=== PATIENT | female | born 1960 | race Caucasian/White ===

== ENCOUNTER 2018-07-14 00:43 | Observation (INO) | payer OTHER ==
[~2018-07-14] VITALS: Ht 157.5 cm; Wt 64.5 kg
[2018-07-14] VITALS (9 sets, daily range): BP systolic 131–189; BP diastolic 57–80; PULSE 53–68; RESP 18–20; Ht 157.5 cm; Wt 64.5 kg
[~2018-07-14 00:43] MED LIST: ARIP5TAB14 PO; ATOR10TA23 PO; BUPR100T6 PO; CALC-375 PO; CENTRUM SILVER; DULO60CA6 PO; LORA-401 PO; METO-103 PO; PREM3 PO; TRAM50TA2 PO
[2018-07-14] MEDS ORDERED: clonAZEPAM 0.5 MG TAB PO PRN (05:00)
[2018-07-14] MEDS ORDERED: VITAMIN E 400 UNITS CAP PO SCH (05:00)
[2018-07-14] MEDS ORDERED: DULO60CA59 PO (05:07)
[2018-07-14] MEDS ORDERED: PRED1TAB2 PO (05:22)
[2018-07-14] MEDS ORDERED: TRAZ300T15 PO (05:22)
[2018-07-14] MEDS ORDERED: VITA200C45 PO (05:22)
[2018-07-14] MEDS ORDERED: FER325 PO (05:22)
[2018-07-14] MEDS ORDERED: SULI150T PO (05:22)
[2018-07-14] MEDS ORDERED: MISO100T PO (05:22)
[2018-07-14] MEDS ORDERED: LOSA100T15 PO (05:22)
[2018-07-14] MEDS ORDERED: ASPI-817 PO (05:22)
[2018-07-14] MEDS ORDERED: ATOR40TA68 PO (05:22)
[2018-07-14] MEDS ORDERED: CLON1TAB13 PO (05:22)
[2018-07-14] MEDS ORDERED: PANT40TA4 PO (05:22)
[2018-07-14] MEDS ORDERED: LURA120T PO (05:22)
[2018-07-14] MEDS ORDERED: GABA-526 PO (05:22)
[2018-07-14] MEDS ORDERED: FOLI-49 PO (05:22)
[2018-07-14] MEDS ORDERED: METO-429 PO (05:22)
[2018-07-14] MEDS ORDERED: HYDR200T39 PO (05:22)
[2018-07-14] MEDS ORDERED: SUCR1TAB56 PO (05:22)
[2018-07-14] MEDS ORDERED: SULFA PO (05:22)
[2018-07-14] MEDS ORDERED: NITROGLYCERIN (SL) 0.4 MG TAB SL PRN (06:00)
[2018-07-14] MEDS ORDERED: ALBUTEROL/IPRATROPIUM (NEB) 3 ML AMP HHN PRN (06:00)
[2018-07-14] MEDS ORDERED: NACL 0.9% 3 ML SYG IV SCH (06:00)
[2018-07-14] MEDS ORDERED: PANTOPRAZOLE (EC) 40 MG TAB PO SCH (06:00)
[2018-07-14] MEDS ORDERED: ACETAMINOPHEN 325 MG TAB PO PRN (06:00)
[2018-07-14] MEDS ORDERED: ONDANSETRON 4 MG INJ IV PRN (06:00)
[2018-07-14] MEDS ORDERED: [UNRECOGNIZED DRUG - REMARK] XX SCH (07:30)
[2018-07-14] MEDS ORDERED: [UNRECOGNIZED DRUG - OTHER] XX SCH (07:30)
--- NOTE | 2018-07-14 08:45 | HP ---
Date/Time of Note Date/Time of Note DATE: 07/14/18 TIME: 08:40 Assessment/Plan VTE Prophylaxis Pharmacological prophylaxis: heparin Lines/Catheters IV Catheter Type (from Nrsg): Peripheral IV Assessment/Plan Assessment/Plan 57-year-old female with a history of rheumatoid arthritis, fibromyalgia, hypertension, dyslipidemia, bipolar/depression and recently diagnosed mitral regurgitation secondary to rheumatic heart disease transferred to [facility] for chest pain workup. Troponin x2 and EKG negative at the outside facility. Will rule out ACS PLAN Telemetry monitoring Supplemental oxygen, aspirin, nitro. Beta-savannah if heart rate and blood pressure allows Trend troponin 2D echo and cardiology consult Continue home meds with adjustment as needed Result Diagram: 07/14/18 0735 07/14/18 0735 Results 24hrs Laboratory Tests Test 07/14/18 07:35 White Blood Count 4.1 L Red Blood Count 3.73 L Hemoglobin 12.1 Hematocrit 36.7 L Mean Corpuscular Volume 98.4 Mean Corpuscular Hemoglobin 32.4 Mean Corpuscular Hemoglobin Concent 33.0 Red Cell Distribution Width 11.9 Platelet Count 129 L Mean Platelet Volume 11.5 H Immature Granulocytes % 0.000 L Neutrophils % Lymphocytes % Monocytes % Eosinophils % Basophils % Nucleated Red Blood Cells % 0.0 Immature Granulocytes # 0.000 Neutrophils # Lymphocytes # Monocytes # Eosinophils # Basophils # Nucleated Red Blood Cells # Sodium Level 143 Potassium Level 3.9 Chloride Level 107 Carbon Dioxide Level 31 Anion Gap 5 Blood Urea Nitrogen 11 Creatinine 0.67 Est Glomerular Filtrat Rate mL/min > 60 Glucose Level 91 Calcium Level 9.0 Total Bilirubin 0.1 L Direct Bilirubin 0.00 Indirect Bilirubin 0.1 Aspartate Amino Transf (AST/SGOT) 14 L Alanine Aminotransferase (ALT/SGPT) 18 Alkaline Phosphatase 33 L Creatine Kinase 30 Creatine Kinase Index Pending Creatinine Kinase MB (Mass) Pending Troponin I Pending Total Protein 5.6 L Albumin 3.7 Globulin 1.90 Albumin/Globulin Ratio 1.94 Triglycerides Level 69 Cholesterol Level 119 LDL Cholesterol, Calculated 47 HDL Cholesterol 58 Cholesterol/HDL Ratio 2.0 Thyroid Stimulating Hormone (TSH) Pending HPI/ROS Admit Date/Time Admit Date/Time Jul 14, 2018 at 03:41 Hx of Present Illness This is a 57-year-old female with a history of rheumatoid arthritis, fibromyalgia, hypertension, dyslipidemia, bipolar/depression and recently diagnosed mitral regurgitation secondary to rheumatic. Patient initially presented on outside hospital complaining of chest pain x 1 day. It is left-sided, nonradiating. She reported some association with shortness of breath. Denied nausea/vomiting or diaphoresis. Denied similar chest pain in the past. She is accompanied by her daughter who also provided history. At the outside facility, troponin was negative x2 and EKG without ST-T wave abnormal ities. She said the nitroglycerin that she was given at outside facility helped her pain. And when she was given morphine the pain completely resolved. She was transferred to [facility] for insurance reasons. PMH/Family/Social Past Medical History Medical History: other (See HPI) Medications Current Medications IV Flush (NS 3 ml) 3 ml PER PROTOCOL IV ; Start 07/14/18 at 06:00 Ondansetron HCl (Zofran Inj) 4 mg Q6H PRN IV NAUSEA/VOMITING; Start 07/14/18 at 06:00 Nitroglycerin (Nitroglycerin (Sl Tab) 0.4 Mg) 1 tab Q5M PRN SL .CHEST PAIN; Start 07/14/18 at 06:00 Acetaminophen (Tylenol Tab) 650 mg Q6H PRN PO .PAIN 1-3 OR TEMP; Start 07/14/18 at 06:00 Albuterol/ Ipratropium (Duoneb) 3 ml Q2H RESP THERAPY PRN HHN SHORTNESS OF BREATH; Start 07/14/18 at 06:00 Aspirin (Halfprin) 81 mg DAILY PO ; Start 07/14/18 at 09:00 Atorvastatin Calcium (Lipitor) 20 mg QHS PO ; Start 07/14/18 at 21:00 Clonazepam (Klonopin) 1 mg QPM PO ; Start 07/14/18 at 21:00 Duloxetine HCl (Cymbalta) 120 mg DAILY PO ; Start 07/14/18 at 09:00 Ferrous Sulfate (Ferrous Sulfate (Ec)) 325 mg DAILY PO ; Start 07/14/18 at 09:00 Folic Acid (Folic Acid) 1 mg DAILY PO ; Start 07/14/18 at 09:00 Gabapentin (Neurontin) 600 mg BID PO ; Start 07/14/18 at 09:00 Hydroxychloroquine Sulfate (Plaquenil) 200 mg BID PO ; Start 07/14/18 at 09:00 Losartan Potassium (Cozaar) 100 mg DAILY PO ; Start 07/14/18 at 09:00 Metoprolol Tartrate (Lopressor) 50 mg QAM PO ; Start 07/14/18 at 09:00 Misoprostol (Cytotec) 100 mcg QHS PO ; Start 07/14/18 at 21:00 Pantoprazole (Protonix Tab) 40 mg DAILY PO ; Start 07/14/18 at 09:00 Prednisone (Prednisone) 1 mg QAM PO ; Start 07/14/18 at 09:00 Sucralfate (Carafate) 1 gm HS PO ; Start 07/14/18 at 21:00 Sulfadiazine (Sulfadiazine) 1,000 mg DAILY PO ; Start 07/14/18 at 09:00 Sulindac (Clinoril) 200 mg QHS PO ; Start 07/14/18 at 21:00 Trazodone HCl (Desyrel) 300 mg QHS PO ; Start 07/14/18 at 21:00 Vitamin E (Vitamin E) 400 units DAILY PO ; Start 07/14/18 at 09:00 Miscellaneous Information 120 mg DAILY PO ; Start 07/14/18 at 09:00; Status UNV Miscellaneous Information (*Order Clarification Bulletin) LATUDA IS NON FORMULARY ITEM...PLE... Q8H XX ; Start 07/14/18 at 07:30 Miscellaneous Information (*Order Clarification Bulletin) SULINDAC IS NOT AVAILABLE AT THE [facility] [place] Q8H XX ; Start 07/14/18 at 07:30 Coded Allergies: No Known Drug Allergies (Verified Allergy, Unknown, 10/15/11) Past Surgical History Past Surgical Hx: other (See HPI) Family History Significant Family History: no pertinent family hx Social History Alcohol Use: none Smoking Status: Current every day smoker Drug Use: none Exam/Review of Systems Vital Signs Vitals Vital Signs Date Temp Pulse Resp B/P (MAP) Pulse Ox O2 O2 Flow FiO2 Time Delivery Rate 07/14/18 68 08:27 07/14/18 98.2 18 137/63 94 Room Air 07:29 (87) Intake and Output 07/13/18 07/13/18 07/14/18 1515:00 23:00 07:00 IntakeIntake Total 0 ml BalanceBalance 0 ml Exam Constitutional: alert, oriented Head: normocephalic, atraumatic Eyes: EOMI, PERRL Respiratory: clear to auscultation, normal air movement Cardiovascular: regular rate and rhythm Gastrointestinal: soft, non-tender Extremities: normal pulses CAROLINA DOMINIQUE MD Jul 14, 2018 08:45
[2018-07-14] MEDS ORDERED: LOSARTAN 50 MG TAB PO SCH (09:00)
[2018-07-14] MEDS ORDERED: FERROUS SULFATE (EC) 325 MG TAB PO SCH (09:00)
[2018-07-14] MEDS ORDERED: FOLIC ACID 1 MG TAB PO SCH (09:00)
[2018-07-14] MEDS ORDERED: HYDROXYCHLOROQUINE 200 MG TAB PO SCH (09:00)
[2018-07-14] MEDS ORDERED: DULOXETINE 30 MG CAP DR PO SCH (09:00)
[2018-07-14] MEDS ORDERED: ASPIRIN 81 MG TAB PO SCH (09:00)
[2018-07-14] MEDS ORDERED: GABAPENTIN 300 MG CAP PO SCH (09:00)
[2018-07-14] MEDS ORDERED: METOPROLOL 50 MG TAB PO SCH (09:00)
[2018-07-14] MEDS ORDERED: predniSONE 1 MG TAB PO SCH (09:00)
[2018-07-14] MEDS: HYDROXYCHLOROQUINE 200 MG TAB PO SCH ×2 (09:57→20:47)
[2018-07-14] MEDS: VITAMIN E 400 UNITS CAP PO SCH (09:57)
[2018-07-14] MEDS: DULOXETINE 30 MG CAP DR PO SCH (09:57)
[2018-07-14] MEDS: FERROUS SULFATE (EC) 325 MG TAB PO SCH (09:58)
[2018-07-14] MEDS: LOSARTAN 50 MG TAB PO SCH (09:59)
[2018-07-14] MEDS: ASPIRIN (EC) 81 MG TAB PO SCH (09:59)
[2018-07-14] MEDS: SULFADIAZINE 500 MG TAB PO SCH (10:00)
[2018-07-14] MEDS: predniSONE 1 MG TAB PO SCH (10:00)
[2018-07-14] MEDS: PANTOPRAZOLE (EC) 40 MG TAB PO SCH (10:01)
[2018-07-14] MEDS: METOPROLOL 50 MG TAB PO SCH (10:01)
[2018-07-14] MEDS: GABAPENTIN 300 MG CAP PO SCH ×2 (10:01→20:51)
[2018-07-14] MEDS: FOLIC ACID 1 MG TAB PO SCH (10:01)
--- NOTE | 2018-07-14 11:00 | QN ---
Documentation Comment This is a 57-year-old female with a significant family medical history of cardiac arrest both parents, sibling, possible aortic/mitral valvular regurgitation per patient's daughter who is also an echocardiogram for student, admitted with sudden onset of chest pain, with diaphoresis started yesterday while she was sitting up in a chair. Patient has been having a nonproductive bronchospastic cough started the same day. She denied any loss of consciousnes s, dyspnea, shortness of breath, numbness, tingling, nausea, vomiting, abdominal pain or other discomfort. Patient symptoms are completely resolved. So far patient has 1 set of troponin negative. EKG is unremarkable for acute cardiac ischemic events. No electrolyte abnormalities noted in initial lab. A 2D echocardiogram has been ordered which we will follow-up. Based on strong family history of from cardiac arrest, recently reported possible valvular regurgitation, patient would benefit from inpatient formal cardiology evaluation. Continue aspirin prophylaxis. I have placed cardiology consult today and will follow up r ecommendations. Case discussed with Dr.Abe TANG,ANDREW Negrete NP Jul 14, 2018 11:00
[2018-07-14] MEDS: LATUDA 120 MG TABLET PO SCH (14:58)
[2018-07-14] MEDS ORDERED: SOD CHLORIDE 0.9% 100 ML ONE (16:50)
[2018-07-14] MEDS ORDERED: IOHEXOL 100 ML ONE (16:50)
--- NOTE | 2018-07-14 18:58 | RADRPT ---
Echocardiogram Report [id number] : 1960 (57y 8m)Study Date: 07/14/2018 8:26:56 AM Gender: FAccession #: [id number] Tech: Carlo Coleman [facility] Location: [facility] Ref.Physician: CAROLINA DOMINIQUE Height(Cm): BSA: Weight(Kg): Quality: AdequateAccount #: Procedures: Echocardiographic Report: Transthoracic echocardiogram with complete 2D, M-Mode, and doppler examination. Indications: Chest Pain. Measurements: 2D/M Mode Doppler Measurement Value Normal Range Measurement Value Normal Range LVIDd 2D 4.7 [ 3.8 - 5.2 ] cm AV Peak Eduardo 1.4 [ 100.0 - 170.0 ] cm/sec LVIDs 2D 3.3 [ 2.2 - 3.5 ] cm AV Peak PG 8.0 [ 2.0 - 9.0 ] mmHg LVPWd 2D 1.0 [ 0.6 - 0.9 ] cm LVOT Peak Eduardo 1.2 [ 70.0 - 110.0 ] cm/sec IVSd 2D 1.1 [ 0.6 - 0.9 ] cm LVOT Peak PG 5.0 [ 2.0 - 6.0 ] mmHg IVS/LVPW 2D 1.0 ratio MV E Peak Eduardo 1.3 [ 60.0 - 130.0 ] cm/sec AoR Diam 2D 2.7 [ 2.3 - 3.1 ] cm MV A Peak Eduardo 1.1 [ 100.0 - 120.0 ] cm/sec LA/Ao 2D 1 ratio MV E/A 1.1 [ 0.8 - 1.5 ] ratio LA Dimen 2D 3.6 [ 2.7 - 3.8 ] cm MV Decel Time 197 [ 104 - 258 ] msec Lat E` Eduardo 0.1 [ 10.0 - 15.0 ] cm/sec Med E` Eduardo 0.1 cm/sec MV E/A 1.1 [ 0.8 - 1.5 ] ratio TR Peak Eduardo 2.5 [ 100.0 - 280.0 ] cm/sec TR Peak PG 26.0 mmHg RVSP 29.0 [ 10.0 - 36.0 ] mmHg Findings: Left Ventricle: Normal left ventricular systolic function. Normal left ventricular cavity size. Normal left ventricular wall thickness. Ejection fraction is visually estimated at 55-60 %. Tissue Doppler/Mitral Doppler indices are consistent with pseudonormalization with mildly elevated left atrial pressure (Stage II diastolic dysfunction). Right Ventricle: Normal right ventricular size. Normal right ventricular systolic function. Left Atrium: The left atrium is normal in size. Right Atrium: The right atrium is normal in size. Mitral Valve: Mild mitral leaflet calcification. Mild mitral annular calcification. Moderate mitral valve regurgitation. Aortic Valve: No significant aortic stenosis or insufficiency. Aortic cusps appear mildly calcified. Mild to moderate aortic valve regurgitation. Tricuspid Valve: Normal appearance of the tricuspid valve. Estimated peak PA systolic pressure 29 mmHg. There is mild tricuspid regurgitation. Pulmonic Valve: Pulmonic valve not well visualized. There is trace pulmonic regurgitation. Pericardium: Normal pericardium with no significant pericardial effusion. Aorta: Normal aortic root. IVC: Normal size and normal respiratory collapse consistent with normal right atrial pressure. Conclusions: Normal left ventricular systolic function. Normal left ventricular cavity size. Normal left ventricular wall thickness. Ejection fraction is visually estimated at 55-60 %. Tissue Doppler/Mitral Doppler indices are consistent with pseudonormalization with mildly elevated left atrial pressure (Stage II diastolic dysfunction). Mild mitral leaflet calcification. Mild mitral annular calcification. Moderate mitral valve regurgitation. No significant aortic stenosis or insufficiency. Aortic cusps appear mildly calcified. Mild to moderate aortic valve regurgitation. Normal appearance of the tricuspid valve. Estimated peak PA systolic pressure 29 mmHg. There is mild tricuspid regurgitation. Pulmonic valve not well visualized. There is trace pulmonic regurgitation. Electronically Signed By: Ministerio Torres 2018-07-14 18:58:14 PST
--- NOTE | 2018-07-14 19:31 | CONS ---
DATE OF ADMISSION: 07/14/2018 DATE OF CONSULTATION: 07/14/2018 TYPE OF CONSULTATION: Cardiology. REASON FOR CONSULTATION: Chest pain, assess for acute coronary syndrome. REQUESTING PHYSICIAN: Edu Dominique MD, from the hospitalist service. HISTORY OF PRESENT ILLNESS: Ms. Jones is a 57-year-old female with history of rheumatoid arthritis, fibromyalgia, hypertension, dyslipidemia, bipolar disorder, mitral regurgitation, aortic regurgitation, who presented with chronic substernal chest pain. Per family at bedside, the patient was in her usual state of health and started to have a coughing fit and thereafter had a stabbing to burning chest pain, now radiating across her chest and associated shortness of breath. The patient subsequently presented here to the emergency department at [facility] where upon arrival, temperature was 97.7, blood pressure 120/80, pulse 60, respiration rate 19, satting 93%. The patient's labs notable for white blood cell count of 4.1, hemoglobin of 12.1, platelet count 129, sodium 143, potassium 3.9, creatinine 0.6, BUN 11. Troponin negative. Albumin 3.7. The patient's electrocardiogram revealed sinus bradycardia, rate of 51, normal axis with nonspecific ST-T wave abnormalities. The patient subsequently was admitted to the floor and since admit to the floor, has had bradycardia in the 50s with elevated blood pressures. The patient takes metoprolol tartrate 50 mg once a day. MEDICATIONS CURRENTLY IN THE HOSPITAL: 1. Lipitor 20 mg at bedtime. 2. Klonopin 1 mg at bedtime at bedtime. 4. Carafate 1 gram at bedtime. 5. Trazodone 300 mg at bedtime. 6. Aspirin 81 daily. 7. Cymbalta 20 mg daily. 8. Ferrous sulfate. 9. Folic acid. 10. Hydroxychloroquine. 11. Losartan 50 mg daily. 12. Protonix 40 mg daily. 13. Prednisone 1 mg at bedtime. 14. Sulfadiazine. 15. Vitamin E. 16. DuoNeb. ALLERGIES: NO KNOWN DRUG ALLERGIES. SOCIAL HISTORY: Positive tobacco. No EtOH or illicit drug use. FAMILY HISTORY: No history of sudden cardiac or early CAD. REVIEW OF SYSTEMS: As above in HPI. CONSTITUTIONAL: No fevers, chills. PULMONARY: No current shortness of breath. CARDIOVASCULAR: Chest pain, improved. GASTROINTESTINAL: No vomiting. GENITOURINARY: No hematuria. MUSCULOSKELETAL: Degenerative joint disease. PSYCHIATRIC: The patient denies depression. NEUROLOGIC: No documented history of CVA. ENDOCRINE: No documented history of diabetes mellitus. PHYSICAL EXAMINATION: VITAL SIGNS: Temperature of 98.6, blood pressure 160/57, pulse 52, respiratory rate 20, satting 93%. GENERAL: The patient is alert, awake, in no acute distress. NECK: JVP approximately is 8 to 9 cm of water. CHEST: Fair air movement throughout. HEART: Bradycardic, regular rhythm, normal S1, S2, I/ systolic murmur, nondisplaced PMI. ABDOMEN: Positive bowel sounds, soft. EXTREMITIES: No significant pitting edema, 1+ pulses bilateral posterior tibial. LABORATORY DATA: Most recently from today second troponin is negative, 2 negative troponins. IMAGING STUDIES: As above in HPI. No further imaging studies for my review at this time. ELECTROCARDIOGRAM: As above in HPI. No further electrocardiograms for my review at this time. IMPRESSION: 1. Chest pain, assess for acute coronary syndrome with somewhat atypical symptomatology for true cardiac etiology, but concerning for more serious concerns which is aortic dissection, although the patient's clinical problems are not quite fit with this. 3. Hypertension, labile. 4. Dyslipidemia. 5. Fibromyalgia. 6. Psychiatric disorder. 7. Rheumatoid arthritis. 8. Bradycardia. RECOMMENDATIONS: 1. At this time, we would maintain the patient on telemetry monitoring to follow rhythm and rate closely. 2. We will complete the patient's rule out for myocardial infarction to ensure the patient's constellation of symptoms is not due to a true acute coronary syndrome such as acute myocardial infarction. 3. We would continue the patient's antihypertensives at this time with metoprolol or change to b.i.d. dosing and give as tolerated. Continue the patient's losartan and the patient will likely require additional antihypertensives to improve overall systolic blood pressure control. 4. Continue the patient's current statin with most recent LDL of 47 and HDL of 58. 5. We will check a 2D echo for this patient's ejection fraction, wall motion and rule out any major valve abnormalities and given the patient's presentation, although not completely consistent, we may want to consider a CT to rule out any possible dissection or pulmonary embolus. Thank you for allowing me to take part in the care of this patient. I will continue to follow her very closely with you with further recommendations will be made as the patient progresses through her inpatient hospital clinical course. Dictated By: TERE CERVANTES/PAM Conf#: [id number] DID#: [id number] CC: EDU DOMINIQUE MD; ANDREW TANG INSTRUMENT MAKER APPRENTICE;*EndCC* MTDD
[2018-07-14] MEDS ORDERED: hydrALAzine 20 MG INJ IV ONE (20:30)
[2018-07-14] MEDS ORDERED: MISOPROSTOL 100 MCG TAB PO ONE (21:00)
[2018-07-14] MEDS ORDERED: MISOPROSTOL 100 MCG TAB PO SCH (21:00)
[2018-07-14] MEDS ORDERED: traZODone 100 MG TAB PO SCH ×2 (21:00)
[2018-07-14] MEDS ORDERED: SULFADIAZINE 500 MG TAB PO SCH (21:00)
[2018-07-14] MEDS ORDERED: SUCRALFATE 1 GM TAB PO SCH ×2 (21:00)
[2018-07-14] MEDS ORDERED: SULINDAC 200 MG TAB PO SCH ×2 (21:00)
[2018-07-14] MEDS ORDERED: ATORVASTATIN 20 MG TAB PO SCH ×2 (21:00)
[2018-07-14] MEDS ORDERED: SULINDAC 200 MG TABLET PO SCH (21:00)
[2018-07-14] MEDS ORDERED: clonAZEPAM 0.5 MG TAB PO SCH (21:00)
[2018-07-15] VITALS (7 sets, daily range): BP systolic 122–155; BP diastolic 58–71; PULSE 60–76; RESP 20
[2018-07-15] MEDS: DULOXETINE 30 MG CAP DR PO SCH (09:47)
[2018-07-15] MEDS: SULFADIAZINE 500 MG TAB PO SCH (09:47)
[2018-07-15] MEDS: LATUDA 120 MG TABLET PO SCH (09:47)
[2018-07-15] MEDS: FOLIC ACID 1 MG TAB PO SCH (09:48)
[2018-07-15] MEDS: ASPIRIN (EC) 81 MG TAB PO SCH (09:48)
[2018-07-15] MEDS: PANTOPRAZOLE (EC) 40 MG TAB PO SCH (09:48)
[2018-07-15] MEDS: GABAPENTIN 300 MG CAP PO SCH (09:48)
[2018-07-15] MEDS: METOPROLOL 50 MG TAB PO SCH (09:48)
[2018-07-15] MEDS: FERROUS SULFATE (EC) 325 MG TAB PO SCH (09:48)
[2018-07-15] MEDS: HYDROXYCHLOROQUINE 200 MG TAB PO SCH (09:48)
[2018-07-15] MEDS: VITAMIN E 400 UNITS CAP PO SCH (09:48)
[2018-07-15] MEDS: LOSARTAN 50 MG TAB PO SCH (09:49)
[2018-07-15] MEDS: predniSONE 1 MG TAB PO SCH (09:49)
--- NOTE | 2018-07-15 10:02 | PDOCDIS ---
Discharge Instructions CONDITION [id number] Patient Condition: [id number] Stable HOME CARE INSTRUCTIONS: [id number] Diet Instructions: [id number] Regular FOLLOW UP/APPOINTMENTS Follow-up Plan Follow-up with primary care physician in 1 week. You have moderate heart valve disease and you will need a follow-up with a it project manager periodically. ANDREW TANG NP Jul 15, 2018 10:02
[2018-07-15] MEDS ORDERED: IBUPROFEN 400 MG TAB PO ONE (11:30)
--- NOTE | 2018-07-15 13:37 | DS ---
Date/Time of Note Date/Time of Note DATE: 07/15/18 TIME: 13:33 Discharge Summary Admission/Discharge Info Admit Date/Time Jul 14, 2018 at 03:41 Discharge Date/Time Discharge Diagnosis 1. Chest pain, likely musculoskeletal versus anxiety related. ACS ruled out. 4. Dyslipidemia. 5. Fibromyalgia. 6. Psychiatric disorder. 7. Rheumatoid arthritis. 8. Hypertension 9. Stage II diastolic dysfunction. Patient Condition: Stable Consults Dr. Torres, cardiology Procedures 07/14/2018 CTA chest. IMPRESSION: No aortic aneurysm or dissection. No pulmonary embolism. No pulmonary consolidation or edema. Mild bilateral hilar lymphadenopathy, nonspecific. Peribronchovascular nodules in the right upper lobe (6 mm) and left lower lobe (11 mm), nonspecific. Lap band device in place. 07/14/2018. 2D echocardiogram. Conclusions: Normal left ventricular systolic function. Normal left ventricular cavity size. Normal left ventricular wall thickness. Ejection fraction is visually estimated at 55-60 %. Tissue Doppler/Mitral Doppler indices are consistent with pseudonormalization with mildly elevated left atrial pressure (Stage II diastolic dysfunction). Mild mitral leaflet calcification. Mild mitral annular calcification. Moderate mitral valve regurgitation. No significant aortic stenosis or insufficiency. Aortic cusps appear mildly calcified. Mild to moderate aortic valve regurgitation. Normal appearance of the tricuspid valve. Estimated peak PA systolic pressure 29 mmHg. There is mild tricuspid regurgitation. Pulmonic valve not well visualized. There is trace pulmonic regurgitation. Electronically Signed By: Ministerio Torres [facility] Course Is a 57-year-old female with a history of rheumatoid arthritis, hypertension, dyslipidemia, MVR/AVR, depression/bipolar, admitted with sudden onset of chest pain with diaphoresis and nonproductive cough. Patient had negative troponin and stable labs on arrival. She was admitted to telemetry floor to rule out acute coronary syndrome. Patient had cardiology evaluation. Due to risk factors, although her cardiac enzymes and EKG negative for acute cardiac ischemic events, we decided to go forward with a CTA chest. There was no evidence of aortic aneurysm/dissection, no pulmonary embolism, consolidation, edema, or other acute events. Patient's pain resolved. Her labs and vital signs unremarkable. Echocardiogram with stage II diastolic dysfunction with preserved ejection fraction. There was evidence of moderate MVR/AVR. As per cardiology, patient is stable for discharge with outpatient stress test if her symptoms comes back in the future. Approximately 60 minutes was spent on coordinating the discharge on this patient. Patient was seen in collaboration with [facility] Reported Medications Vitamin E* (Vitamin E*) 200 Unit Capsule, 400 UNIT PO Every Other Day, CAP 07/14/18 Clonazepam* (Clonazepam*) 1 Mg Tablet, 1 MG PO QPM, TAB 07/14/18 Lurasidone Hcl (LATUDA) 120 Mg Tablet, 120 MG PO DAILY, #30 TAB 07/14/18 Ferrous Sulfate* (Ferrous Sulfate*) 325 Mg Tabec, 325 MG PO DAILY, TAB 07/14/18 Folic Acid* (Folic Acid*) 1 Mg Tablet, 1 MG PO DAILY, TAB 07/14/18 Prednisone* (Prednisone*) 1 Mg Tablet, 1 MG PO QAM, TAB 07/14/18 Pantoprazole* (Pantoprazole*) 40 Mg Tablet.dr, 40 MG PO DAILY, TAB 07/14/18 Misoprostol* (Cytotec*) 100 Mcg Tablet, 100 MCG PO QHS, TAB 07/14/18 Losartan Potassium* (Losartan Potassium*) 100 Mg Tablet, 100 MG PO DAILY, TAB 07/14/18 Aspirin* (Aspirin* EC) 81 Mg Tablet.dr, 81 MG PO DAILY, TAB 07/14/18 Metoprolol Tartrate* (Lopressor*) 50 Mg Tab, 50 MG PO QAM, #60 TAB 07/14/18 Atorvastatin* (Atorvastatin*) 40 Mg Tablet, 20 MG PO QHS, #30 TAB 07/14/18 Hydroxychloroquine Sulfate* (Hydroxychloroquine Sulfate*) 200 Mg Tablet, 200 MG PO BID, TAB 07/14/18 Sulindac* (Sulindac*) 150 Mg Tablet, 200 MG PO QHS, TAB 07/14/18 Sucralfate* (Carafate*) 1 Gm Tab, 1 GM PO HS, TAB 07/14/18 Sulfadiazine* (Sulfadiazine*) 500 Mg Tab, 1000 MG PO DAILY, TAB 07/14/18 Gabapentin* (Gabapentin*) 600 Mg Tablet, 600 MG PO BID, #60 TAB 07/14/18 Trazodone Hcl* (Trazodone Hcl*) 300 Mg Tablet, 300 MG PO QHS, #30 TAB 07/14/18 Duloxetine Hcl* (Duloxetine Hcl*) 60 Mg Capsule.dr, 120 MG PO DAILY, #30 CAP 07/14/18 Discontinued Reported Medications Atorvastatin (Lipitor) 10 Mg Tablet, 10 MG PO DAILY 10/15/11 Follow-up Plan Follow-up with primary care physician in 1 week. You have moderate heart valve disease and you will need a follow-up with a terminal worker periodically. Primary Care Provider Not On Staff Doctor Pending Labs Laboratory Tests Test 07/14/18 17:00 07/15/18 05:50 Troponin I < 0.012 ng/ml (0.000-0.120) White Blood Count 4.2 10^3/ul (4.8-10.8) Red Blood Count 4.27 10^6/ul (4.20-5.40) Hemoglobin 13.7 g/dl (12.0-16.0) Hematocrit 40.7 % (37.0-47.0) Mean Corpuscular Volume 95.3 fl (82.0-101.0) Mean Corpuscular 32.1 pg (29.0-33.0) Hemoglobin Mean Corpuscular 33.7 g/dl (32.0-37.0) Hemoglobin Concent Red Cell Distribution 11.9 % (11.5-14.5) Width Platelet Count 128 10^3/UL (140-415) Mean Platelet Volume 11.4 fl (7.4-10.4) Immature Granulocytes % 0.200 % (0.001-0.429) Neutrophils % 47.0 % (39.0-77.0) Lymphocytes % 31.5 % (15.0-51.0) Monocytes % 18.4 % (0.0-11.0) Eosinophils % 1.9 % (0.0-7.0) Basophils % 1.0 % (0.0-2.0) Nucleated Red Blood Cells 0.0 /100WBC (0.0-0.0) % Immature Granulocytes # 0.010 10^3/ul (0.0-0.031) Neutrophils # 2.0 10^3/ul (1.6-7.5) Lymphocytes # 1.3 10^3/ul (0.8-2.9) Monocytes # 0.8 10^3/ul (0.3-0.9) Eosinophils # 0.1 10^3/ul (0.0-0.5) Basophils # 0.0 10^3/ul (0.0-0.1) Nucleated Red Blood Cells 0.0 10^3/ul (0.0-0.0) # Sodium Level 143 mmol/L (135-144) Potassium Level 3.5 mmol/L (3.5-5.1) Chloride Level 105 mmol/L (97-110) Carbon Dioxide Level 29 mmol/L (21-31) Anion Gap 9 (5-13) Blood Urea Nitrogen 9 mg/dl (7-20) Creatinine 0.78 mg/dl (0.44-1.00) Est Glomerular Filtrat > 60 mL/min (>60) Rate mL/min Glucose Level 89 mg/dl (70-220) Calcium Level 9.0 mg/dl (8.4-10.2) Phosphorus Level 4.8 mg/dl (2.5-4.9) Magnesium Level 1.9 mg/dl (1.7-2.5) ANDREW TANG NP Jul 15, 2018 13:37
--- NOTE | 2018-07-15 13:45 | CONS ---
Assessment/Plan Assessment/Plan Hospital Course (Demo Recall) IMPRESSION: 1. Chest pain, assess for acute coronary syndrome with somewhat atypical symptomatology for true cardiac etiology, but concerning for more serious concerns which is aortic dissection, although the patient's clinical problems are not quite fit with this. - now s/p chest CT with no dissection/PE. Echo with NL EFthis admit with mod MR/mild-mod AR 3. Hypertension, labile. 4. Dyslipidemia. 5. Fibromyalgia. 6. Psychiatric disorder. 7. Rheumatoid arthritis. 8. Bradycardia-stable with stable BP. NL TSH Recc: -Tele -serial ecg's -Continue zestril and BB but either change to BID or long acting formulation -Continue statin -Continue steroids -OK for outpatient stress test if no further sx and thus d/c planning Consultation Date/Type/Reason Admit Date/Time Jul 14, 2018 at 03:41 Initial Consult Date 07/15/18 Type of Consult Cardiology Reason for Consultation chest pain Requesting Provider: ANDREW TANG NP Date/Time of Note DATE: 07/15/18 TIME: 13:39 Exam/Review of Systems Vital Signs Vitals Vital Signs Date Temp Pulse Resp B/P (MAP) Pulse Ox O2 O2 Flow FiO2 Time Delivery Rate 07/15/18 99.2 65 20 128/61 94 Room Air 10:59 (83) Intake and Output 07/14/18 07/14/18 07/15/18 1515:00 23:00 07:00 IntakeIntake Total 300 ml 250 ml BalanceBalance 300 ml 250 ml Exam Exam Review of Systems: CONSTITUTIONAL: No fevers, chills. PULMONARY: No sob CARDIOVASCULAR: No chest pain/palpitations GASTROINTESTINAL: No nausea/vomiting. GENITOURINARY: No hematuria/dysuria. MUSCULOSKELETAL: No myagias/arthalgias. PSYCHIATRIC: The patient denies depression. NEUROLOGIC: No weakness Constitutional: alert Psych: no complaints Head: normocephalic ENMT: mucosa pink and moist Neck: supple, jvd (9 cm water) Respiratory: diminished breath sounds Cardiovascular: regular rate and rhythm Gastrointestinal: soft, non-tender Musculoskeletal: muscle tone (normal) Extremities: edema (none) Neurological: other (No focal deficits) Labs Result Diagram: 07/15/18 0550 07/15/18 0550 Results 24hrs Laboratory Tests Test 07/14/18 17:00 07/15/18 05:50 Troponin I < 0.012 White Blood Count 4.2 L Red Blood Count 4.27 Hemoglobin 13.7 Hematocrit 40.7 Mean Corpuscular Volume 95.3 Mean Corpuscular Hemoglobin 32.1 Mean Corpuscular Hemoglobin Concent 33.7 Red Cell Distribution Width 11.9 Platelet Count 128 L Mean Platelet Volume 11.4 H Immature Granulocytes % 0.200 Neutrophils % 47.0 Lymphocytes % 31.5 Monocytes % 18.4 H Eosinophils % 1.9 Basophils % 1.0 Nucleated Red Blood Cells % 0.0 Immature Granulocytes # 0.010 Neutrophils # 2.0 Lymphocytes # 1.3 Monocytes # 0.8 Eosinophils # 0.1 Basophils # 0.0 Nucleated Red Blood Cells # 0.0 Sodium Level 143 Potassium Level 3.5 Chloride Level 105 Carbon Dioxide Level 29 Anion Gap 9 Blood Urea Nitrogen 9 Creatinine 0.78 Est Glomerular Filtrat Rate mL/min > 60 Glucose Level 89 Calcium Level 9.0 Phosphorus Level 4.8 Magnesium Level 1.9 Medications Medications Current Medications IV Flush (NS 3 ml) 3 ml PER PROTOCOL IV ; Start 07/14/18 at 06:00 Ondansetron HCl (Zofran Inj) 4 mg Q6H PRN IV NAUSEA/VOMITING; Start 07/14/18 at 06:00 Nitroglycerin (Nitroglycerin (Sl Tab) 0.4 Mg) 1 tab Q5M PRN SL .CHEST PAIN; Start 07/14/18 at 06:00 Acetaminophen (Tylenol Tab) 650 mg Q6H PRN PO .PAIN 1-3 OR TEMP Last administered on 07/15/18at 07:42; Admin Dose 650 MG; Start 07/14/18 at 06:00 Albuterol/ Ipratropium (Duoneb) 3 ml Q2H RESP THERAPY PRN HHN SHORTNESS OF BREATH; Start 07/14/18 at 06:00 Aspirin (Halfprin) 81 mg DAILY PO Last administered on 07/15/18at 09:48; Admin Dose 81 MG; Start 07/14/18 at 09:00 Atorvastatin Calcium (Lipitor) 20 mg QHS PO Last administered on 07/14/18at 20:47; Admin Dose 20 MG; Start 07/14/18 at 21:00 Clonazepam (Klonopin) 1 mg QPM PO Last administered on 07/14/18 20:48; Admin Dose 1 MG; Start 07/14/18 at 21:00 Duloxetine HCl (Cymbalta) 120 mg DAILY PO Last administered on 07/15/18 09:47; Admin Dose 120 MG; Start 07/14/18 at 09:00 Ferrous Sulfate (Ferrous Sulfate (Ec)) 325 mg DAILY PO Last administered on 07/15/18 09:48; Admin Dose 325 MG; Start 07/14/18 at 09:00 Folic Acid (Folic Acid) 1 mg DAILY PO Last administered on 07/15/18 09:48; Admin Dose 1 MG; Start 07/14/18 at 09:00 Gabapentin (Neurontin) 600 mg BID PO Last administered on 07/15/18 09:48; Admin Dose 600 MG; Start 07/14/18 at 09:00 Hydroxychloroquine Sulfate (Plaquenil) 200 mg BID PO Last administered on 07/15/18 09:48; Admin Dose 200 MG; Start 07/14/18 at 09:00 Losartan Potassium (Cozaar) 100 mg DAILY PO Last administered on 07/15/18 09:49; Admin Dose 100 MG; Start 07/14/18 at 09:00 Metoprolol Tartrate (Lopressor) 50 mg QAM PO Last administered on 07/15/18 09:48; Admin Dose 50 MG; Start 07/14/18 at 09:00 Misoprostol (Cytotec) 100 mcg QHS PO Last administered on 07/14/18 20:47; Admin Dose 100 MCG; Start 07/14/18 at 21:00 Pantoprazole (Protonix Tab) 40 mg DAILY PO Last administered on 07/15/18 09:48; Admin Dose 40 MG; Start 07/14/18 at 09:00 Prednisone (Prednisone) 1 mg QAM PO Last administered on 07/15/18 09:49; Admin Dose 1 MG; Start 07/14/18 at 09:00 Sucralfate (Carafate) 1 gm HS PO Last administered on 07/14/18 20:47; Admin Dose 1 GM; Start 07/14/18 at 21:00 Sulfadiazine (Sulfadiazine) 1,000 mg DAILY PO Last administered on 07/15/18 09:47; Admin Dose 1,000 MG; Start 07/14/18 at 09:00 Trazodone HCl (Desyrel) 300 mg QHS PO Last administered on 07/14/18at 20:47; Admin Dose 300 MG; Start 07/14/18 at 21:00 Vitamin E (Vitamin E) 400 units DAILY PO Last administered on 07/15/18at 09:48; Admin Dose 400 UNITS; Start 07/14/18 at 09:00 Patient Own Medication 1 ea DAILY PO Last administered on 07/15/18at 09:47; Admin Dose 1 EA; Start 07/14/18 at 14:00 Patient Own Medication 1 ea HS PO ; Start 07/14/18 at 21:00 TERE BUSTAMANTE Jul 15, 2018 13:45
[2018-07-15] MEDS ORDERED: METO-319 PO (13:57)
== END 2018-07-15 15:15 | disposition home or self-care (01) ==
LOC: INTOOBSV 03:41 → 6WM 03:41
PROVIDERS: ADMIT Internal Medicine; ATTEND Internal Medicine
DX: R07.9 Chest pain, unspecified (principal); I10 Essential (primary) hypertension; E78.5 Hyperlipidemia, unspecified; M79.7 Fibromyalgia; M06.9 Rheumatoid arthritis, unspecified; F99 Mental disorder, not otherwise specified; R00.1 Bradycardia, unspecified
CPT/HCPCS: 71275; 80048; 80053; 80061; 82550; 82553; 83036; 83735; 84100; 84443; 84484; 84703; 85025; 93306; J0360; J7512; Q9967; Z7500; Z7610; 99217; G0378